=== PATIENT | male | born 1990 | race Caucasian/White ===

== ENCOUNTER 2018-01-18 17:14 | Emergency (ER) | payer OTHER ==
[2018-01-18 17:36] VITALS: BP 127/74
--- NOTE | 2018-01-18 18:49 | RAD ---
INDICATION: Plantar tendinitis, left foot pain. TECHNIQUE: 3 views of the left foot were obtained. FINDINGS: The bones are in normal alignment. No fracture is seen. Joint spaces appear maintained. No calcaneal spurs are noted. IMPRESSION: NO EVIDENCE FOR FRACTURE.
--- NOTE | 2018-02-17 17:00 | UC ---
Lower Extremity/Ankle HPI - HPI Summary HPI Summary: left ankle pain radiating from left hip for 1 month---patient has no specific injury - History of Current Complaint Chief Complaint: UCLowerExtremity Stated Complaint: ANKLE PAIN Time Seen by Provider: 01/18/18 17:51 Hx Obtained From: Patient Onset/Duration: Gradual Onset, Lasting Weeks - 4 Pain Intensity: 4 Pain Scale Used: 0-10 Numeric Aggravating Factor(s): Standing, Ambulation Alleviating Factor(s): Rest, Elevation Able to Bear Weight: Yes - Allergies/Home Medications Allergies/Adverse Reactions: Allergies Allergy/AdvReac Type Severity Reaction Status Date / Time gluten Allergy GI Upset Verified 01/18/18 17:30 peanut Allergy Rash Verified 01/18/18 17:30 Home Medications: Home Medications Cbd Oil 5 mg PO DAILY 01/18/18 [History] PMH/Surg Hx/FS Hx/Imm Hx Previously Healthy: Yes - Surgical History Surgical History: Yes Surgery Procedure, Year, and Place: APPENDECTOMY, RT ANKLE - Family History Known Family History: Positive: Cardiac Disease, Diabetes - Social History Occupation: Employed Full-time Lives: With Family Alcohol Use: Occasionally Substance Use Type: None Smoking Status (MU): Never Smoked Tobacco Review of Systems Constitutional: Negative Skin: Negative Eyes: Negative ENT: Negative Respiratory: Negative Cardiovascular: Negative Gastrointestinal: Negative Genitourinary: Negative Motor: Negative Neurovascular: Negative Musculoskeletal: Arthralgia - left hip pain radiating to left ankle Neurological: Negative Psychological: Negative Is Patient Immunocompromised?: No All Other Systems Reviewed And Are Negative: Yes Physical Exam Triage Information Reviewed: Yes Appearance: Well-Appearing, No Pain Distress, Well-Nourished Vital Signs: Initial Vital Signs Temp 98.4 F 01/18/18 17:31 Pulse 76 01/18/18 17:31 Resp 18 01/18/18 17:31 BP 127/74 01/18/18 17:31 Pulse Ox 99 01/18/18 17:31 Vital Signs Reviewed: Yes Eye Exam: Normal Eyes: Positive: Conjunctiva Clear ENT Exam: Normal ENT: Positive: Normal ENT inspection, Hearing grossly normal. Negative: Muffled voice, Hoarse voice, Dental tenderness Neck exam: Normal Neck: Positive: Supple, Nontender, No Lymphadenopathy Respiratory Exam: Normal Respiratory: Positive: Chest non-tender, No respiratory distress, No accessory muscle use Cardiovascular Exam: Normal Cardiovascular: Positive: RRR, Pulses Normal, Brisk Capillary Refill Musculoskeletal Exam: Normal Musculoskeletal: Positive: Strength Intact, ROM Intact, No Edema Neurological Exam: Normal Neurological: Positive: Alert, Muscle Tone Normal Psychological Exam: Normal Psychological: Positive: Normal Response To Family Skin Exam: Normal Lower Extremity Course/Dx - Course Course Of Treatment: NSAIDS, work release follow with orthpedic Docotor this weeks - Differential Dx/Diagnosis Provider Diagnoses: left ankle tendonitis Discharge - Sign-Out/Discharge Documenting (check all that apply): Discharge/Admit/Transfer - Discharge Plan Condition: Stable Disposition: HOME Patient Education Materials: Ibuprofen (By mouth), Tendinitis (ED) Forms: *Work Release Referrals: Abe Benitez MD [Medical Doctor] - 3 Days - Billing Disposition and Condition Condition: STABLE Disposition: HOME
== END 2018-01-18 19:20 | disposition home or self-care (01) ==
LOC: UCEAST 17:14
DX: M65.872 Other synovitis and tenosynovitis, left ankle and foot (principal)
CPT/HCPCS: 99211; G0463

== ENCOUNTER 2018-04-15 08:12 | Day surgery (SDC) | payer OTHER ==
[~2018-04-15 08:12] MED LIST: Buffered Lidocaine 0.9% SYRIN* 5 ML/SYR SYRINGE INTRADERM ONE; Dexamethasone IV* 4 MG/ML 1 ML (4 MG) IV SLOW PU ONE; Famotidine IV* 10 MG/ML 2 ML (20 mg) IV ONE
[2018-04-15] MEDS ORDERED: Dexamethasone IV* 4 MG/ML 1 ML (4 MG) ONE (08:50)
[2018-04-15] MEDS ORDERED: Famotidine IV* 10 MG/ML 2 ML (20 mg) ONE (08:50)
[2018-04-15] MEDS ORDERED: Bupivacaine 0.5% PF 10 ML VIAL INJ ONE (10:39)
[2018-04-15] MEDS ORDERED: Lidocaine 2% PF* 10 ML AMP ONE (10:39)
[2018-04-15] MEDS ORDERED: fentaNYL* 50 MCG/ML 2 ML VIAL (100 MCG VIAL) ONE ×2 (10:59→13:01)
[2018-04-15] MEDS ORDERED: Midazolam* 1 MG/ML 5 ML VIAL (5 MG) ONE (10:59)
[2018-04-15] MEDS ORDERED: Ketorolac INJ* 30 MG/ML 1 ML VIAL IV PRN (11:01)
[2018-04-15] MEDS ORDERED: oxyCODONE/Acetamin 5/325 MG* TAB PO PRN (11:01)
[2018-04-15] MEDS ORDERED: HYDROcodone/ACETAMIN 5-325 MG* 1 TAB PO PRN (11:01)
[2018-04-15] MEDS ORDERED: Naloxone* 0.4 MG/ML 1 ML VIAL IV PRN (11:01)
[2018-04-15] MEDS ORDERED: PROCHLORPERAZINE INJ 5 MG/ML 2 ML VIAL IV PRN (11:01)
[2018-04-15] MEDS ORDERED: Lidocaine 2% PF * 5 ML VIAL ONE (11:05)
[2018-04-15] MEDS ORDERED: Propofol* 10 MG/ML 20 ML BTL IV PUSH ONE (11:05)
[2018-04-15] MEDS ORDERED: Ondansetron INJ* 2 MG/ML VIAL ONE (11:51)
[2018-04-15] MEDS ORDERED: oxyCODONE/Acetamin 5/325 MG* TAB ONE (12:48)
[2018-04-15] MEDS ORDERED: Ketorolac INJ* 30 MG/ML 1 ML VIAL ONE (12:48)
[2018-04-15] MEDS: fentaNYL* 50 MCG/ML 2 ML VIAL (100 MCG VIAL) IV PRN ×2 (13:02→13:07)
[2018-04-15 14:14] VITALS: BP 134/76
--- NOTE | 2018-05-25 10:42 | OP ---
DATE OF OPERATION: 04/15/18 - [facility] DATE OF : 86 SURGEON: Abe Benitez MD MEDICATION CARE MANAGER: JAIMIE Anderson PRE-OP DIAGNOSIS: Large intraarticular cystic defect, left medial malleolus. POST-OP DIAGNOSIS: Large intraarticular cystic defect, left medial malleolus. OPERATIVE PROCEDURE: Open bone grafting using tibial bone graft and allograft. DESCRIPTION OF PROCEDURE: The patient was taken to the operating room where longitudinal incision was made over the medial malleolus. Using a small power bur, we were able to enter the medial malleolus and identify the cystic structure. This was then enlarged to about a cm in diameter keeping it around oval defect. Using a large curette, we were able to scrape the gelatinous cystic material from the defect and then used a larger bur tip to remove the subcondylar bone around the cyst. Proximally to the tibia near the Gerdy's tubercle, we made a 3 cm oblique incision and opened up the lateral cortex. We harvested the cancellous bone, which was mixed with allograft chips and placed firmly into the defect at the medial malleolus. The proximal defect was then backfilled with a small amount of allograft closing the periosteum with a 2-0 Vicryl, subcu 2-0 Vicryl and layne. Medial malleolar incision was closed after irrigation using Vicryl and layne and a compression dressing and plasters splint was applied. [id number]/CPS #: [id number] MTDD
== END 2018-04-15 14:15 | disposition home or self-care (01) ==
LOC: OR 08:12
PROVIDERS: ATTEND Orthopaedic Surgery
DX: M67.472 Ganglion, left ankle and foot (principal); M85.672 Other cyst of bone, left ankle and foot
CPT/HCPCS: 87070; 87073; 87205; A9270-GY; J1100; J1885; J2001; J2250; J2405; J2704; J3010

== ENCOUNTER 2019-01-13 08:25 | Day surgery (SDC) | payer OTHER ==
[~2019-01-13 08:25] MED LIST changes: -Buffered Lidocaine 0.9% SYRIN* 5 ML/SYR SYRINGE INTRADERM ONE; +Buffered Lidocaine 1% SYRIN* 1 ML/SYRINGE INTRADERM ONE; +Dexamethasone IV* 4 MG/ML 1 ML (4 MG) ONE; -Famotidine IV* 10 MG/ML 2 ML (20 mg) IV ONE; +Famotidine TAB* 20 MG ONE; +Famotidine TAB* 20 MG PO ONE; +Lactated Ringers 1000 ML Bag* 1,000 ML IV SCH; +ceFAZolin 2 GM in NS PREMIX(*) 2 GM/100 ML BAG IVPB ONE
[2019-01-13] MEDS ORDERED: Midazolam* 1 MG/ML 2 ML VIAL (2 MG) ONE (10:01)
[2019-01-13] MEDS ORDERED: fentaNYL* 50 MCG/ML 2 ML VIAL (100 MCG VIAL) ONE ×3 (10:01→12:27)
[2019-01-13] MEDS ORDERED: Lidocaine 2% PF * 5 ML VIAL ONE (10:05)
[2019-01-13] MEDS ORDERED: Propofol* 10 MG/ML 20 ML BTL ONE (10:05)
[2019-01-13] MEDS ORDERED: Bupivacaine 0.5%* 50 ML VIAL ONE (10:44)
[2019-01-13] MEDS ORDERED: Scopolamine 1.5 mg* PATCH ONE (10:47)
[2019-01-13] MEDS ORDERED: Acetaminophen TAB* 325 MG PO PRN (10:54)
[2019-01-13] MEDS ORDERED: HYDROmorphone INJ1* 1 MG/ML SYRINGE IV PRN (10:54)
[2019-01-13] MEDS ORDERED: Ketorolac INJ* 30 MG/ML 1 ML VIAL IV PRN (10:54)
[2019-01-13] MEDS ORDERED: DiMENhydriNATE IV* 50 MG/ML VIAL IV PUSH PRN (10:54)
[2019-01-13] MEDS ORDERED: Naloxone* 0.4 MG/ML 1 ML VIAL IV PRN (10:54)
[2019-01-13] MEDS ORDERED: Scopolamine 1.5 mg* PATCH TRANSDERM SCH (11:00)
[2019-01-13] MEDS ORDERED: Ketorolac INJ* 30 MG/ML 1 ML VIAL ONE (12:27)
[2019-01-13] MEDS: fentaNYL* 50 MCG/ML 2 ML VIAL (100 MCG VIAL) IV PRN ×2 (12:30→13:04)
[2019-01-13] MEDS: HYDROcodone/ACETAMIN 5-325 MG* 1 TAB PO PRN ×2 (13:18→13:28)
[2019-01-13] MEDS ORDERED: HYDROcodone/ACETAMIN 5-325 MG* 1 TAB ONE ×2 (13:18→13:27)
[2019-01-13 14:05] VITALS: BP 125/73
--- NOTE | 2019-01-13 22:54 | OP ---
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 OPERATIVE PROCEDURE: Repeat bone grafting left medial malleolus using tibial bone graft, autograft and a small amount of allograft. DESCRIPTION OF PROCEDURE: The patient was taken to the operating room where a longitudinal incision was made again, over the medial malleolus. Using the 4 mm power leo, we entered the medial malleolus, where we expected the cyst based on the preoperative CT scan. The cavity was opened and then curetted thoroughly with a medium size curette. Through a 4 cm incision proximally at Gerdy's tubercle, using the same previous scar, we harvested cancellous bone from the proximal lateral tibia. This autograft was mixed with a small amount of allograft and then packed firmly into the cyst at the medial malleolus. The proximal wound was closed after packing a few allograft chips with deep 2-0 Vicryl suture for the periosteum, Monocryl for the subcu and layne for the skin. The medial malleolar incision was closed with Monocryl layne for the skin as well and then a plaster dressing splint was applied. [id number]/[facility] #: [id number] ASAD
== END 2019-01-13 14:04 | disposition home or self-care (01) ==
LOC: OR 08:25
PROVIDERS: ATTEND Orthopaedic Surgery
DX: M85.472 Solitary bone cyst, left ankle and foot (principal)
CPT/HCPCS: A9270-GY; J0690; J1100; J1885; J2250; J2704; J3010

== ENCOUNTER 2019-06-23 11:29 | Day surgery (SDC) | payer OTHER ==
[~2019-06-23 11:29] MED LIST changes: -Dexamethasone IV* 4 MG/ML 1 ML (4 MG) IV SLOW PU ONE; -Dexamethasone IV* 4 MG/ML 1 ML (4 MG) ONE; +Famotidine IV* 10 MG/ML 2 ML (20 mg) IV ONE; -Famotidine TAB* 20 MG ONE; -Famotidine TAB* 20 MG PO ONE; -ceFAZolin 2 GM in NS PREMIX(*) 2 GM/100 ML BAG IVPB ONE
[2019-06-23] MEDS ORDERED: Famotidine IV* 10 MG/ML 2 ML (20 mg) ONE (12:00)
[2019-06-23] MEDS ORDERED: ceFAZolin 2 GM PREMIX in ORs 2 GM/50 ML BAG ONE (12:00)
[2019-06-23] MEDS ORDERED: Midazolam* 1 MG/ML 5 ML VIAL (5 MG) ONE (12:03)
[2019-06-23] MEDS ORDERED: ROPIVACAINE 5 MG/ML 30 ML BTL (0.5%) ONE (12:25)
[2019-06-23] MEDS ORDERED: Lidocaine 1% MPF ** 5 ML VIAL ONE (12:25)
[2019-06-23] MEDS ORDERED: DiMENhydriNATE IV* 50 MG/ML VIAL IV PUSH PRN (12:41)
[2019-06-23] MEDS ORDERED: Acetaminophen TAB* 325 MG PO PRN (12:41)
[2019-06-23] MEDS ORDERED: Naloxone* 0.4 MG/ML 1 ML VIAL IV PRN (12:41)
[2019-06-23] MEDS ORDERED: oxyCODONE TAB* 5 MG TAB PO PRN (12:41)
[2019-06-23] MEDS ORDERED: Scopolamine 1.5 mg* PATCH ONE (12:42)
[2019-06-23] MEDS ORDERED: fentaNYL* 50 MCG/ML 2 ML VIAL (100 MCG VIAL) ONE (13:08)
[2019-06-23] MEDS ORDERED: Succinylcholine* 20 MG/ML 10 ML VIAL ONE (13:25)
[2019-06-23] MEDS ORDERED: Dexamethasone IV* 4 MG/ML 1 ML (4 MG) ONE (13:25)
[2019-06-23] MEDS ORDERED: Propofol* 10 MG/ML 20 ML BTL ONE (13:25)
[2019-06-23] MEDS ORDERED: Ketorolac INJ* 30 MG/ML 1 ML VIAL ONE (13:25)
[2019-06-23] MEDS ORDERED: DiMENhydriNATE IV* 50 MG/ML VIAL ONE (13:25)
[2019-06-23] MEDS ORDERED: Ondansetron INJ* 2 MG/ML VIAL ONE (13:25)
[2019-06-23] MEDS ORDERED: Lidocaine 2% PF * 5 ML VIAL ONE (13:25)
[2019-06-23] MEDS ORDERED: Ropivacaine 0.2% * 2 MG/ML VIAL ONE (13:40)
[2019-06-23] MEDS ORDERED: methylPREDNISolone ACETATE 80* 80 MG/ML 1 ML VIAL ONE (13:45)
[2019-06-23 15:08] VITALS: BP 125/82
--- NOTE | 2019-06-23 23:36 | OP ---
CC: PCP, Lin Gomez DO * DATE OF OPERATION: 06/23/19 - [facility] DATE OF : 86 ATTENDING SURGEON: Patricio Guillermo MD. GIS WEB DEVELOPER: JAIMIE Gallegos. An service assistant was needed for the entirety of the case to help with positioning, retraction, and was utilized throughout all portions of the case. ANESTHESIOLOGIST: Dr. Carranza. ANESTHESIA: General interscalene block. COMPLICATIONS: None. ESTIMATED BLOOD LOSS: Minimal. IMPLANTS: 1 [employer]hew 2.8 Q-Fix. PRE-OP DIAGNOSIS: left shoulder impingement and possible slap tear POST-OP DIAGNOSIS: left shoulder impingement, intact rotator cuff tear, slap tear and biceps tendonitis OPERATIVE PROCEDURE: Left shoulder arthroscopic decompression, debridement, and subpectoral biceps tenodesis. INDICATIONS: Briefly, Pritesh Gregorio is a 28-year-old male with persistent shoulder pain, refractory to conservative management including physical therapy , antiinflammatories, ice, heat, and injections. After extensive discussion of the risks and benefits to operative versus nonoperative treatment, he has elected to proceed with surgical treatment. Risks include but are not limited to bleeding, infection, damage to nerves; vessels; surrounding structures, wound nonhealing, persistent pain, need for further surgery, scarring, stiffness , incomplete relief of symptoms, and risks of anesthesia. DESCRIPTION OF PROCEDURE: The patient was greeted in the preoperative area by the attending surgeon. Correct extremity was marked and consent was confirmed. The patient underwent interscalene nerve block by the anesthesiologist, after which he was brought back to the operating suite and was placed in the supine position on the operating room table. He then underwent general anesthesia with endotracheal intubation, after which he was placed in the right lateral decubitus position. All bony prominences were padded and he was secured with a pegboard. The left arm was draped unsterile with 10 pounds of traction. The left shoulder was then prepped and draped in the usual sterile fashion beginning with chlorhexidine soap, scrub, and alcohol wipe and a final prep with ChloraPrep. After appropriate surgical pause indicating site, side, procedure, and administration of antibiotics, a standard postero-lateral portal was made sharp with an 11 blade. A scope was introduced into the joint and the joint was examined. There were grade 0 to 1 changes at the glenohumeral joint. The anterior labrum had unstable fraying as well as the superior labrum. He had a [place] lesion. The anteroposterior portal was made in an outside-in fashion. Shaver was used to debride back the anterior, posterior and superior labrum. The biceps was then tenotomized for later tenodesis, had abundant synovitis and damage to the maria teresa, and had an obvious flap type 2 tear. Once the remainder of the stump was debrided back, the inferior recess was examined and found to be intact. The subscap was intact. The undersurface of the rotator cuff, supra and infraspinatus were intact without any tearing. Once the debridement was complete, attention was directed to the subacromial space. With the scope positioned in the subacromial space, a lateral portal was made in an outside-in fashion. The scope was positioned in the joint and the shaver was used to debride back the abundant thick bursal tissue that was present. Hemostasis was obtained using the electrocautery device. The undersurface of the acromion was skeletonized using the electrocautery device and there was an anterolateral spur that was identified. This was debrided back using a 4-0 oval bur and the CA ligament peeled back. Once this was completed, all loose debris was removed from the subacromial space. The rotator cuff was examined and found to be intact. There was no evidence of tearing. Therefore, the decision was made to treat this with 80 mg of Depo-Medrol injection. Therefore , an 18-gauge needle was placed under arthroscopic visualization for later injection. The wounds were copiously irrigated and attention was directed to the biceps. The bed was air-planed to the left side. The anterior aspect of the shoulder was prepped again using ChloraPrep. A 15-blade was used to make an incision in line with the biceps tendon. The soft tissues were carefully dissected to expose the pec tendon. At this point, the remainder of the dissection was done bluntly. The pec was elevated and the groove was palpated, and the biceps was brought through the wound. There was abundant synovitis and erythema that was attached. There was tendinosis as well. An image was taken of the biceps. The groove was then prepared in the usual fashion with the electrocautery device , red ball rasp, and osteotome. Then, the Q-fix was then drilled unicortically and deployed with excellent purchase. The Q-fix was then passed through the tendon in a Marco-Gennaro type configuration and then the excess stump was excised and the biceps was shoveled back into position. The wounds were copiously irrigated with sterile saline. The anterior wound was closed in layers with 3-0 Monocryl. The portals were closed with 3-0 nylon in an interrupted fashion. The subacromial space was injected with 80 mg of Depo- Medrol. The wounds were then copiously irrigated with sterile saline. Sterile dressings were applied. A Cryo-Cuff and UltraSling were applied. He was awoken from anesthesia and transferred to PACU in stable condition. POSTOPERATIVE PLAN: He will be nonweightbearing. He will be discharged on pain medication. DVT prophylaxis was considered, but deferred due to no previous personal or family history. He will be in a sling for 3 weeks. He will start therapy next week. [id number]/[facility] #: [id number] MTDD
== END 2019-06-23 15:30 | disposition home or self-care (01) ==
LOC: OREAST 11:29
PROVIDERS: ATTEND Orthopaedic Surgery
DX: M75.42 Impingement syndrome of left shoulder (principal); M24.812 Other specific joint derangements of left shoulder, not elsewhere classified; M75.22 Bicipital tendinitis, left shoulder; G89.18 Other acute postprocedural pain; I25.10 Atherosclerotic heart disease of native coronary artery without angina pectoris; I10 Essential (primary) hypertension
CPT/HCPCS: A9270-GY; C1776; J0330; J0690; J1040; J1100; J1240; J1885; J2250; J2405; J2704; J2795; J3010